=== PATIENT | male | born 1990 | race Caucasian/White ===

== ENCOUNTER 2020-11-27 17:51 | Emergency (ER) | payer MEDICAID, SELFPAY ==
--- NOTE | ~2020-11-27 | XR_ITS ---
EXAMINATION: XR HAND-WRIST, RIGHT CLINICAL INFORMATION: Laceration COMPARISON: None TECHNIQUE: Right hand-wrist, 3 views FINDINGS: Bones have normal alignment throughout the hand and wrist. The carpal bones are normal. No acute fracture or subluxation. The joint spaces are maintained in the hand and wrist. Old healed fracture (and associated shortening and angulation deformity) of fourth metacarpal. No acute metacarpal injury. Soft tissue laceration projects ulnar to the distal fifth metacarpal. Punctate calcific density is noted in the soft tissues medial to the base of the fifth metacarpal. No acute fracture in this area. XR/XR hand wrist RT IMPRESSION: * Soft tissue laceration is seen adjacent to the fifth metacarpal. * No acute osseous injury in the right hand or wrist. * Old, healed fracture of the fourth metacarpal.
[2020-11-27 18:10] VITALS: BP 126/73; PULSE 86; RESP 16; TEMP 37.3; O2SAT 98; BMI 23.6
--- NOTE | 2020-11-27 18:19 | ED_ITS ---
HPI - Wound/Laceration General Chief Complaint: Wound/Laceration Stated Complaint: HAND LAC Time Seen by Provider: 11/27/20 18:18 Source: patient Mode of arrival: ambulatory Limitations: no limitations History of Present Illness HPI narrative: 30-year-old male presents with several lacerations to his right hand and wrist and a laceration to his left thumb after a glass door broke in front of him. He is having a difficult time moving his left 5th finger and does not recall when his last Tdap was updated. He tried to control the bleeding with pressure dressing and presented to the emergency department. He does not report any other symptoms at this time. Onset (ago): hour(s) (Within the hour of arrival) Extremity Location: bilateral: hand (Left thumb laceration, 4 lacerations to the right hand and wrist) Place: home Patient tetanus UTD: No Context: accidental Associated symptoms: pain Treatments prior to arrival: bandage Related Data Previous Rx's Medication Instructions Recorded amoxicillin 875 mg-potassium 1 tab PO Q12H 10 Days #20 tab 11/27/20 clavulanate 125 mg tablet (Augmentin) oxycodone 5 mg tablet 5 mg PO Q8H PRN #7 tab 11/27/20 Allergies Allergy/AdvReac Type Severity Reaction Status Date / Time DUST Allergy Unknown ITCHY EYES Uncoded 01/08/20 15:53 Review of Systems Review of Systems: Constitutional: No Fever, No Chills ENT/Mouth: No Ear Pain, No Hoarseness, No sore throat Eyes: No Eye Pain, No Swelling, No Redness, No Foreign Body Cardiovascular: No Chest Pain, No SOB Respiratory: No Cough, No Dyspnea Gastrointestinal: No Nausea, No Vomiting, No Diarrhea, No abdominal Pain Genitourinary: No Dysuria, No Hematuria Musculoskeletal: positive bilateral hand pain, No Myalgias, No Joint Swelling Skin: Multiple lacerations to the right hand and wrist, 1 laceration to the left thumb, No rash Neuro: No Weakness, No Numbness, No Paresthesias, No Loss of Consciousness, No Dizziness, No Headache Psych: No Anxiety/Panic, No Depression Heme/Lymph: no easy bruising, no Lymphadenopathy Endocrine: No Polyuria, No Polydipsia Yes all other systems are reviewed and are negative PMFSH Past Medical History Attestation statement: The following information was validated with the patient. Source: old records reviewed Social History Social History Advance Directives: No Advance Directives Information Provided: No Physical Exam Vital Signs: Vital Signs: Last Vital Signs Temp 99.1 F 11/27/20 18:10 Pulse 86 11/27/20 18:10 Resp 16 11/27/20 18:10 BP 126/73 11/27/20 18:10 Pulse Ox 98 11/27/20 18:10 Body Mass Index 23.6 Appearance: Alert. Oriented X3. Mild distress. Eyes: Pupils equal, round and reactive to light. ENT: Pharynx normal. Neck: Normal inspection. Neck supple. CVS: Normal heart rate and rhythm. Pulses normal. Respiratory: No respiratory distress. Breath sounds normal. Abdomen: Soft and nontender. Skin: Skin warm and dry. Normal skin color. Normal skin turgor. Extremities: Left thumb has 1 cm laceration between the MIP and PIP dorsal aspect, decreased strength on extension to the right 5th finger, 5 cm irregular laceration to the wrist at the ulnar process, 4 cm laceration midway between the ulnar process and MIP, 3 cm laceration between the MIP and 2nd laceration, laceration to the hypothenar on the right side. Full range of motion for the hand, full extension flexion pronation and supination. Brisk capillary refill and equal pulses to all extremities and digits on the upper extremities. Neuro: No motor deficit. No sensory deficit. Cranial nerves 2-12 intact. Course Course Course Narrative: 30-year-old male presents with multiple lacerations after a glass door broke in front of him. His significant lacerations to the right wrist, dorsal aspect of the hand, and thenar process. Has a significant decrease in extension to the 5th finger. Updated Tdap today. Ordered x-rays. Plan of care is for laceration repair to both hands, and consult with Ortho. Discussion with ortho PA, plan is for patient to follow up on Sunday for assessment for X suspected 5th finger extensor tendon injury. Prepped and draped in sterile fashion. Irrigated with copious amounts of normal saline. Betadine cleanse. Please refer to procedure note for full details. Patient tolerated procedure well. Approximately 30 minutes after laceration repair, patient continues to have brisk capillary refill, equal pulses and decreased range of motion to the right 5th finger. Wounds dressed with sterile dressings. Patient does understand that he must follow up with Orthopedics for suspected tendon injury. Does understand that he must use antibiotics to prevent infection. Patient verbalized understanding of and agrees to plan of care to discharge home. MDM - Wound/Laceration Differential Diagnosis Differential diagnosis: Likely laceration Imaging Data hand wrist x-ray: Attestation: I personally reviewed and interpreted this imaging study as follows: Radiologist's impression: EXAMINATION: XR HAND-WRIST, RIGHT CLINICAL INFORMATION: Laceration? COMPARISON: None? TECHNIQUE: Right hand-wrist, 3 views? FINDINGS: Bones have normal alignment throughout the hand and wrist. The carpal bones are normal. No acute fracture or subluxation. The joint spaces are maintained in the hand and wrist. Old healed fracture (and associated shortening and angulation deformity) of fourth metacarpal. No acute metacarpal injury. Soft tissue laceration projects ulnar to the distal fifth metacarpal. Punctate calcific density is noted in the soft tissues medial to the base of the fifth metacarpal. No acute fracture in this area. XR/XR hand wrist RT IMPRESSION: *? Soft tissue laceration is seen adjacent to the fifth metacarpal. *? No acute osseous injury in the right hand or wrist. *? Old, healed fracture of the fourth metacarpal. Procedures Laceration Laceration 1: Site: hand Side (If applicable): left (thumb) Size (cm): 1.5 Description: linear Depth: simple, single layer Local Anesthetic: lidocaine 2% Amount of anesthesia used (mL): 2 Pre-repair: wound explored, irrigated extensively and deep structures intact Skin layer closed with: nylon Size (cm): 5-0 Number of sutures: 2 Technique: simple, interrupted Laceration 2: Site: hand Side (If applicable): right Size (cm): 10 Description: irregular Depth: simple, single layer and involves muscle layer Local Anesthetic: lidocaine 2% Amount of anesthesia used (mL): 8 Pre-repair: wound explored, irrigated extensively and deep structures intact Skin layer closed with: nylon Size (cm): 5-0 Number of sutures: 18 Technique: simple, interrupted Laceration 3: Site: hand Side (If applicable): right Size (cm): 4 Description: linear Depth: simple, single layer Local Anesthetic: lidocaine 2% Amount of anesthesia used (mL): 2 Pre-repair: wound explored, irrigated extensively and deep structures intact Skin layer closed with: nylon Size (cm): 5-0 Number of sutures: 4 Technique: simple, interrupted Laceration 4: Site: hand Side (If applicable): right Size (cm): 3 Description: linear Depth: simple, single layer Local Anesthetic: lidocaine 2% Amount of anesthesia used (mL): 3 Pre-repair: wound explored, irrigated extensively and deep structures intact Skin layer closed with: nylon Size (cm): 5-0 Number of sutures: 4 Technique: simple, interrupted Discharge Plan Discharge Clinical Impression: Laceration, Injury of extensor tendon of hand Patient Disposition: Home, Self-Care Instructions: Care For Your Stitches (ED), Laceration (ED), Tendon Laceration (ED) Additional Instructions: You were evaluated for multiple lacerations the right hand. Your injuries are highly suspicious for an extensor tendon injury to the right 5th finger. You must follow-up with Hand surgery on Sunday. They will call you for consult. Do not soak your hand in water. You may wash your hands as needed. Do not swim, soak in hot tub, or wash dishes. Please use Tylenol Motrin as needed for pain management. I prescribed oxycodone for pain management. This medication is a narcotic and has high risk for addiction and abuse. Do not drive or operate machinery while taking this medication. We prescribed Augmentin. Please take this medication every 12 hours for next 10 days. We updated your Tdap vaccine today. Thank you for choosing this emergency department for evaluation. Please follow-up with primary care physician as needed. Return to the emergency department for any new, concerning, or worsening symptoms. Prescriptions: New oxycodone 5 mg tablet 5 mg PO Q8H PRN (Reason: pain) Qty: 7 RF: 0 amoxicillin-pot clavulanate [Augmentin] 875-125 mg tablet 1 tab PO Q12H 10 Days Qty: 20 RF: 0 Referrals: Dior Reddy PA-C [Physician Customer Support Consultant] - 2 days (Suspicion of extensor tendon injury to the right 5th finger.) Stand Alone Forms: Work/School Release Interventions: ED Discharge Assessment Last Done: 11/27/20 21:42 Discharge Date/Time: 11/27/20 21:43
[2020-11-27] MEDS: Lidocaine HCl 2 % MPF 5 ML VIAL 15 ML SUBCUT (19:02)
[2020-11-27] MEDS: Diphth,Pertus(ACell),Tet Adult 0.5 ML SYRINGE IM (21:32)
== END 2020-11-27 21:43 | disposition home or self-care (01) ==
PROVIDERS: Emergency Provider Internal Medicine
DX: S61.411A Laceration without foreign body of right hand, initial encounter (principal); S66.221A Laceration of extensor muscle, fascia and tendon of right thumb at wrist and hand level, initial encounter; W25.XXXA Contact with sharp glass, initial encounter; Y93.9 Activity, unspecified; Y92.9 Unspecified place or not applicable; Y99.9 Unspecified external cause status
CPT/HCPCS: 12004; 12044; 73110; 73130; 90471; 90715; 99283; 99284

== ENCOUNTER → 2020-11-29 15:30 | Outpatient (BNVA) | payer MEDICAID, SELFPAY | PROVIDERS: Visit Provider Orthopaedic Surgery | DX: S66.821A Laceration of other specified muscles, fascia and tendons at wrist and hand level, right hand, initial encounter (principal); S61.401A Unspecified open wound of right hand, initial encounter | CPT/HCPCS: 99202 ==

== ENCOUNTER 2020-12-02 09:03 | Day surgery (SDC) | payer MEDICAID, SELFPAY ==
[2020-12-02] VITALS (7 sets, daily range): BP systolic 114–130; BP diastolic 74–78; PULSE 62–101; RESP 14–18; TEMP 36.4–36.9; O2SAT 98–100; BMI 23.6
[2020-12-02] MEDS: Lactated Ringers 1,000 ML 50 ML IVCONT (10:58)
--- NOTE | 2020-12-02 12:30 | MHC.SHP ---
Pre-Procedural Eval Section A Date of Service: 12/02/20 The patient is an INPATIENT: No Changes since office visit: No Cold of Flu in the past 2 weeks, No New Medical Problems, No Changes in Medication and No Patient answered all questions The History & Physical has been completed within 30 days and I have reviewed it.: Yes Section B Chief Complaint: right hand wound Allergies: Allergies Allergy/AdvReac Type Severity Reaction Status Date / Time DUST Allergy Unknown ITCHY EYES Uncoded 01/08/20 15:53 Plan I have reviewed the history and physical and performed a pertinent physical examination on my patient. No changes have occurred unless specified.
--- NOTE | 2020-12-02 12:31 | P.OP_ITS ---
Operative Note Operative Note Date of Service: 12/02/20 Narrative: Operative Note Narrative: Preop diagnosis: 1. Right hand abductor digiti quinti tendon laceration 2. Right hand extensor digitorum communis to the small finger tendon laceration 3. Right hand extensor digitorum quinti tendon laceration Postop diagnosis: 1. Right hand extensor digitorum communis to the small finger tendon laceration? 2. Right hand extensor digitorum quinti tendon laceration 3. Right extensor carpi ulnaris partial laceration (15%) 4. Right ECU tendon subsheath laceration Procedure: 1. Right hand repair of abductor digiti quinti tendon 2. Right hand extensor digitorum comuniss to the small finger tendon repair 3. Right ECU tendon subsheath repair 4. Repair of 3 skin lacerations involving the right hand and wrist with total length of 11 cm Surgeon: Cristina Torres MD Anesthesia: Mac plus regional block Findings: Laceration of the right hand ED Q and EDC tendons to the small finger just proximal to the extensor expansion at the MCP joint. I believe the abduct or digiti quinti muscle belly and tendon were volar to the laceration and were not injured. The most proximal laceration lacerated the ECU sub sheath at the wrist level. There was also a partial laceration of the ECU tendon that involved approximately 50% of the tendon. The tendon did not need to be repaired. Implants: None Tourniquet time: 75 minutes EBL: 5.0 ml Specimen: None Drains: None Complications: None Disposition: Brought to the recovery room in stable condition Plan: Follow-up in 10-14 days for wound check, suture removal and placement in a short-arm finger spica cast with the 4th and 5th MCP joints in approximately 30? of flexion. Consider referral to OT at 4-6 weeks postop to begin tendon gliding exercises. If it 4 weeks will need a custom splint made by OT. Indications: The patient is a 30 year old man with right hand lacerations involving the extensor tendons to the right small finger after breaking through a glass door. . The risks and benefits of operative treatment, including but not limited to risk of damage to blood vessels, nerves, tendons, infection, recurrence, persistent pain or numbness, incomplete resolution of preoperative symptoms, or need for further surgery were discussed with the patient and they wished to proceed with surgery. Procedure: Once consent was obtained patient was brought back to the operating suite and placed in the operating table in a supine position. . Perioperative antibiotics and anesthesia was administered by the anesthesia team. A tourniquet was applied to the proximal aspect of the right upper extremity and the limb was prepped and draped in a standard surgical fashion. The limb was elevated exsanguinated with Esmarch bandage and the tourniquet inflated to 250 mm of mercury for a total tourniquet time of 75 minutes. Sutures were removed from all 3 lacerations on the dorsal ulnar aspect of the right hand and wrist. My attention was 1st turned to the most distal laceration. It measured approximately 2.5 cm and was just proximal to the right small finger MCP joint on the dorsal side. I extended this laceration by making a 1.5 cm incision distal to the radial aspect of the laceration and proximal to the ulnar aspect of the laceration. I carefully dissected down to the level of the extensor tendons and the dorsal aspect of the 5th metacarpal. The piece of glass apparently came in at an oblique angle and struck the dorsal aspect of the 5th metacarpal neck, lacerating the EDQ tendon and the EDC tendon to the small finger approximately a cm proximal to the sagittal bands. I evaluated the most radial aspect of the laceration looking to see if the abductor digiti quinti was involved. The extent of the wound did not extend past the dorsal ulnar aspect of the 5th metacarpal neck, and I do not believe the piece of glass traveled volar enough to hit the abductor digiti quinti as it was not visualized within the wound. The proximal aspect of the EDQ and EDC tendons were identified in the proximal wound at the wrist. Both tendons were withdrawn into the more distal wound using small hemostat. The EDC tendon to the small finger was repaired 1st, using 3-0 Ethibond suture material as well as 5 0 Prolene. The EDQ tendon was repaired 2nd, again using 3-0 Ethibond and 6 0 Prolene suture. I then turned my attention to the sheath and subsheath of the extensor carpi ulnaris tendon at the wrist. This was repaired using some 4-0 Vicryl suture. At this point the tourniquet was deflated and hemostasis obtained with a brief period of local pressure and bipolar electrocautery. The wounds were copiously irrigated with normal saline. I then repaired the 3 skin lacerations on the ulnar aspect of the hand and wrist that measured a total of 11 cm. This was done using for I will approve it suture material. The skin incisions made for the repair were also reapproximated using 5 0 Prolene suture. The wound was infiltrated with some 1% lidocaine with epinephrine for postop pain control and a sterile dressing and volar splint holding the wrist and the 4th and 5th MCP joints in extension was applied. The patient appears to have tolerated the procedure well and with no complications. All digits were well vascularized conclusion of the case.
[2020-12-02] MEDS: Acetaminophen 325 MG TABLET 650 MG PO (15:00)
[2020-12-02] MEDS: oxyCODONE HCl Immed Release 5 MG TABLET PO (15:01)
[2020-12-02] MEDS: Ketorolac Tromethamine 15 MG/ML VIAL IVPUSH (15:01)
== END 2020-12-02 16:02 | disposition home or self-care (01) ==
PROVIDERS: PCP Internal Medicine; Visit Provider Orthopaedic Surgery
PROC: (CPT 26410; principal; 2020-12-02 10:40)
DX: S66.326A Laceration of extensor muscle, fascia and tendon of right little finger at wrist and hand level, initial encounter (principal); S61.411A Laceration without foreign body of right hand, initial encounter; S56.521A Laceration of other extensor muscle, fascia and tendon at forearm level, right arm, initial encounter; W25.XXXA Contact with sharp glass, initial encounter; Y93.89 Activity, other specified; Y92.9 Unspecified place or not applicable; Y99.8 Other external cause status; Z87.81 Personal history of (healed) traumatic fracture
CPT/HCPCS: 26410 ×3; 25270; J0690; J1100; J1885; J2250; J2405; J3010

== ENCOUNTER → 2020-12-08 15:06 | Outpatient (BNVA) | payer MEDICAID, SELFPAY | PROVIDERS: PCP Internal Medicine; Visit Provider Orthopaedic Surgery | DX: S66.821D Laceration of other specified muscles, fascia and tendons at wrist and hand level, right hand, subsequent encounter (principal); S61.401D Unspecified open wound of right hand, subsequent encounter | CPT/HCPCS: 99212 ==

== ENCOUNTER → 2020-12-15 14:53 | Outpatient (BNVA) | payer MEDICAID, SELFPAY | PROVIDERS: PCP Internal Medicine; Visit Provider Orthopaedic Surgery ==

== ENCOUNTER → 2020-12-28 14:53 | Outpatient (BNVA) | payer MEDICAID, SELFPAY | PROVIDERS: PCP Internal Medicine; Visit Provider Physician Assistant | DX: S66.821A Laceration of other specified muscles, fascia and tendons at wrist and hand level, right hand, initial encounter (principal); S61.401A Unspecified open wound of right hand, initial encounter | CPT/HCPCS: 29085; 99212 ==

== ENCOUNTER → 2021-01-05 12:20 | Outpatient (BNVA) | payer MEDICAID, SELFPAY | PROVIDERS: PCP Internal Medicine; Visit Provider Orthopaedic Surgery | DX: S66.821D Laceration of other specified muscles, fascia and tendons at wrist and hand level, right hand, subsequent encounter (principal); S61.401D Unspecified open wound of right hand, subsequent encounter | CPT/HCPCS: 99212 ==

== ENCOUNTER → 2021-01-26 10:39 | Outpatient (BNVA) | payer MEDICAID, SELFPAY | PROVIDERS: PCP Internal Medicine; Visit Provider Orthopaedic Surgery | DX: S66.821D Laceration of other specified muscles, fascia and tendons at wrist and hand level, right hand, subsequent encounter (principal); S61.401D Unspecified open wound of right hand, subsequent encounter; M25.641 Stiffness of right hand, not elsewhere classified | CPT/HCPCS: 97140; 99212 ==

== ENCOUNTER 2021-02-11 13:52 | Outpatient (RCR) | payer MEDICAID, SELFPAY ==
--- NOTE | 2021-02-28 13:52 | MHC.OT.DC ---
[address] [phone] F: [phone] Occupational Therapy Discharge Note Provider: Cristina Torres MD Diagnosis: S/P right EDC and EDQ tendon repair Date of Surgery: 12/02/20 Date of Evaluation: 02/11/21 Date of Discharge: 02/28/21 Treatments to Date: 1 Cancellations to Date: 0 No Shows to Date: 4 Discharge Status: Visit Non-compliance Discharge Summary: MR REYNA PRESENTED TO OCCUPATIONAL THERAPY FOR HIS INITIAL VISIT. HE HAS NOT RETURNED TO OT SINCE HIS EVALUATION AND HAS HAD FOUR NO-SHOWS. PATIENT WILL BE DISCHARGED DUE TO THE CORE NO SHOW/ ATTENDANCE POLICY. Electronically Signed By: DANNY MENDIETA/Wilman Reviewed/agree with student documentation: N/A Therapist: Please Sign and return to therapist, thank you for your referral.
== END 2021-02-28 13:50 | disposition home or self-care (01) ==
LOC: HO.OT 13:52
PROVIDERS: PCP Nurse Practitioner Family; Visit Provider Orthopaedic Surgery
DX: M25.641 Stiffness of right hand, not elsewhere classified (principal); S66.821D Laceration of other specified muscles, fascia and tendons at wrist and hand level, right hand, subsequent encounter; S61.401D Unspecified open wound of right hand, subsequent encounter
CPT/HCPCS: 97110; 97165